=== PATIENT | female | born 1945 ===

== ENCOUNTER 2018-01-28 06:07 | Day surgery (SDC) | payer MEDICARE, MEDICAID ==
--- NOTE | 2018-01-26 18:15 | Pre-op HX & Phy Repo 2 SIG ---
SURGEON: Ko Cool m.d. DATE OF SURGERY: January 28, 2018, laparoscopic cholecystectomy. HISTORY OF PRESENT ILLNESS: This is a 73-year-old female with several months of postprandial abdominal pain who had an abdominal ultrasound revealing gallstones who is now admitted for elective laparoscopic cholecystectomy. The patient does not have any history of acute cholecystitis or hepatobiliary disease. PAST MEDICAL HISTORY: Nephrolithiasis, hypertensive heart disease, chronic venous insufficiency, type 2 diabetes mellitus, hyperlipidemia, Vitamin D deficiency, osteoarthritis predominantly affecting the knees, sinus arrhythmia, degenerative disk disease, B12 deficiency with pernicious anemia. MEDICATIONS: Prior to admission, amlodipine 5 daily, metoprolol succinate 50 daily, Hyzaar 100/12.5 daily, vitamin D 1000 international units daily, calcium carbonate 650 b.i.d., ranitidine 150 daily. Her diet is 1800 calorie ADA. ALLERGIES: None. SOCIAL HISTORY: Negative for smoking, alcohol, or substance abuse. FAMILY HISTORY: Noncontributory. REVIEW OF SYSTEMS: Her most recent echocardiogram this year revealed normal ejection fraction with mild concentric hypertrophy and no significant valve disease. She does have mild aortic atherosclerosis. Her most recent hemoglobin A1c was 6.2 within the last few months. There is no history of kidney disease. There is no history of thyroid impairment. There is no history of seizure or stroke. There is no history of asthma or intolerance to anesthesia. The patient's diabetes is diet controlled. She has not been on anti-lipid therapy recently due to good control with her diet PHYSICAL EXAMINATION: GENERAL: The patient is well developed, well nourished, in no distress. VITAL SIGNS: Weight 158. Height 5 feet 2.5 inches. Blood pressure 140/80, pulse 64, respiratory rate 18, and afebrile. HEENT: Normocephalic and atraumatic. Conjunctivae pink. Oropharynx clear. Mucous membranes moist. NECK: Supple. Jugular venous pressure normal. LUNGS: clear. CARDIAC: Regular rhythm and rate. Normal S1 and S2 with no murmur, rub or gallop. ABDOMEN: Soft, nontender with no guarding or rebound. There is no pulsatile masses. EXTREMITIES: Good pulses. No edema. NEUROLOGIC: Nonfocal. SKIN: Intact with no rashes. LABORATORY AND DIAGNOSTIC DATA: EKG with sinus rhythm at 63 beats per minute, nonspecific ST change. No acute abnormality. LABORATORY DATA: Reviewed. IMPRESSION: This 73-year-old female with symptomatic cholelithiasis is an acceptable candidate for laparoscopic cholecystectomy and standby for open open cholecystectomy with no anticipated increase in perioperative anesthesia risk. Marcin Fleming M.D. DR: Wali JOB#: [id number] CC:
[~2018-01-28] VITALS: Ht 152.4 cm; Wt 71.2 kg
[2018-01-28] VITALS (13 sets, daily range): BP systolic 100–133; BP diastolic 59–76
[~2018-01-28 06:07] MED LIST: AMLODIPINE BESY10 MG PO; LOSARTAN-HCTZ1 EACH ORAL; LOW DOSE ASPIRI81 MG PO; METAMUCIL; METOPROLOL SUCC50 MG PO; RANITIDINE HCL75 MG PO
[2018-01-28] MEDS ORDERED: Lidocaine 1% 10mg/ml/EPI 0.01mg/ml 50ml INJ ONE (07:04)
[2018-01-28] MEDS ORDERED: Bupivacaine 0.5% Inj 30 ml vial INJ ONE (07:04)
[2018-01-28] MEDS ORDERED: Iothalamate Meglumine 60% 30ML INJ ONE (07:05)
[2018-01-28] MEDS ORDERED: Zemuron 50mg/5ml Inj IV ONE (07:06)
[2018-01-28] MEDS ORDERED: Succinylcholine 20mg/ml 10ml vial ONE ×2 (07:06→07:30)
[2018-01-28] MEDS ORDERED: fentaNYL 100 mcg/2 mL IV ONE (07:08)
[2018-01-28] MEDS ORDERED: Midazolam 2mg/2ml Inj ONE (07:08)
[2018-01-28] MEDS ORDERED: Propofol 200mg/20ml IV ONE (07:09)
[2018-01-28] MEDS ORDERED: Lidocaine 1% MPF 10mg/ml 5ml ONE (07:09)
[2018-01-28] MEDS ORDERED: EPINEPHrine 1mg/1ml Amp ONE (07:25)
--- NOTE | 2018-01-28 07:29 | Anethesia Preoperative Eval ---
Anesthesia Pre-op PMH/ROS General Date of Evaluation: Jan 28, 2018 Time of Evaluation: 07:24 Anesthesiologist: Zabrina Iverson CRNA ASA Score: ASA 2 Mallampati Score Class I : Soft palate, uvula, fauces, pillars visible Class II: Soft palate, uvula, fauces visible Class III: Soft palate, base of uvula visible Class IV: Only hard plate visible Mallampati Classification: Class II Surgeon: Travon Diagnosis: Cholelisthiasis, abdominal pain Surgical Procedure: Laparasccopic cholecystectomy with cholangiogram Anesthesia History: none Family History: no anesthesia problems Allergies: Coded Allergies: No Known Allergies (Unverified , 05/10/12) Medications: see eMAR Past Medical History Cardiovascular: Reports: HTN, arrhythmia - sinus arrhythmia, other - hyperlipidemia; Denies: CAD, VA, valve dz Pulmonary: Denies: asthma, COPD, [place], other Gastrointestinal/Genitourinary: Reports: other - Chronic abdominal pain, u/s (+ ) gallstones; hx of nephrolisthesis; Denies: GERD, CRI, ESRD Neurologic/Psychiatric: Denies: dementia, CVA, depression/anxiety, TIA, other Endocrine: Reports: DM - Type II, diet controlled; Denies: hypothyroidism, steroids, other HEENT: Denies: cataract (L), cataract (R), glaucoma, [place] (L), [place] (R), other Hematology/Immune: Reports: anemia - B-12 deficiency, other - venous insufficiency Musculoskeletal/Integumentary: Reports: OA, DDD; Denies: RA, DJD, edema, other PMH Narrative: as above PSxH Narrative: C/S; variscose vein stripping Anesthesia Pre-op Phys. Exam Physician Exam Last Vital Signs Date Time Temp Pulse Resp B/P (MAP) Pulse Ox O2 Delivery O2 Flow Rate FiO2 01/28/18 06:36 98.6 82 20 133/76 (95) 95 98.6 01/28/18 06:35 Room Air Constitutional: NAD Neurologic: CN 2-12 intact Cardiovascular: RRR Respiratory: CTA Gastrointestinal: S/NT/ND Airway Exam Mallampati Score: Class II MO: full Neck: no issues TMD: > 3 FB ROM: full Teeth: missing Dentures: upper, lower Anesthesia Pre-op A/P Labs see chart; K= 3.0 Studies Pre-op Studies: EKG - SR,, echo - 2018: Normal EF, mild concentric hypertrophy , no valve disease Risk Assessment & Plan Assessment: ASA 2, ok to proceed Plan: GETA Pre-Antibiotics Drug: Cefazolin 2 gm Given Within 1 Hr of Incision: Yes Time Given: 07:53 Zabrina Iverson CRNA Jan 28, 2018 07:29
[2018-01-28] MEDS ORDERED: Neostigmine 1mg/ml 10ml Inj ONE (07:30)
[2018-01-28] MEDS ORDERED: Sterile Water Irrig 1000ml IRRIG ONE (07:30)
[2018-01-28] MEDS ORDERED: ceFAZolin sod 2 GM in D5W 110 ML IV SCH (07:30)
[2018-01-28] MEDS ORDERED: Metoclopramide 10mg/2ml Inj ONE (07:30)
[2018-01-28] MEDS ORDERED: Glycopyrrolate 0.2mg/ml 1ml Vial ONE (07:30)
[2018-01-28] MEDS ORDERED: LR 1000ml ONE (07:30)
[2018-01-28] MEDS ORDERED: NS Irrig 1000ml ONE (07:30)
[2018-01-28] MEDS ORDERED: ePHEDrine 50mg/ml Inj ONE (07:30)
--- NOTE | 2018-01-28 07:41 | Pre-Procedure Note/Attestation ---
Pre-Procedure Note/Attestation Complete Prior to Procedure Planned Procedure: not applicable Procedure Narrative: lap zaire Indications for Procedure Pre-Operative Diagnosis: cholelithiasis Attestation I attest that I discussed the nature of the procedure; its benefits; risks and complications; and alternatives (and the risks and benefits of such alternatives ), prior to the procedure, with the patient (or the patient's legal solar manufacturer's representative). I attest that, if there was a reasonable possibility of needing a blood transfusion, the patient (or the patient's legal solar manufacturer's representative) was given the [facility] standardized written summary, pursuant to the Josh Kristin Blood Safety Act ([place] Health and Safety Code # 1645, as amended). I attest that I re-evaluated the patient just prior to the surgery and that there has been no change in the patient's H&P, except as documented below: Ko Cool Jan 28, 2018 07:41
--- NOTE | 2018-01-28 08:51 | Brief Operative Note ---
Immediate Post Operative Note Operative Note Pre-op Diagnosis: symptomatic cholelithiasis Procedure: laparoscopic cholecystectomy Post-op Diagnosis: same as pre-op Surgeon: jan Anesthesiologist: Zabrina MAYFIELD Anesthesia: general, local Specimen: yes Complications: none Condition: stable Fluids: see records Estimated Blood Loss: minimal Drains: none Implant(s) used?: No Ko Cool Jan 28, 2018 08:51
[2018-01-28] MEDS ORDERED: Norco 5mg/325mg tab ORAL PRN (09:00)
--- NOTE | 2018-01-28 09:04 | Immediate Post-Op Evaluation ---
Immediate Post-Op Evalulation Immediate Post-Op Evalulation Procedure: Laparoscopic cholecystectomy Date of Evaluation: Jan 28, 2018 Time of Evaluation: 08:50 IV Fluids: LR + 1 mEQ KCl/100 ml = 600 ml Estimated Blood Loss: minimal Blood Pressure Systolic: 116 Blood Pressure Diastolic: 68 Pulse Rate: 98 Respiratory Rate: 24 O2 Sat by Pulse Oximetry: 98 Temperature (Fahrenheit): 98.5 Pain Score (1-10): 0 Nausea: No Vomiting: No Complications none Patient Status: awake, reacts, patent, extubated Hydration Status: adequate Drug: Cefazolin 2 gm Given Within 1 Hr of Incision: Yes Time Given: 07:53 Zabrina Iverson CRNA Jan 28, 2018 09:04
[2018-01-28] MEDS ORDERED: Labetalol 5mg/ml 20ml vial IV PRN (09:15)
[2018-01-28] MEDS ORDERED: Hydromorphone 0.5mg/0.5ml inj IVP PRN (09:15)
[2018-01-28] MEDS ORDERED: DiphenhydrAMINE 50mg/ml Inj IVP PRN (09:15)
--- NOTE | 2018-01-28 09:46 | 48 Hour Post Anesthesia Eval ---
Post Anesthesia Evaluation Procedure: Laparoscopic cholecystectomy Date of Evaluation: Jan 28, 2018 Time of Evaluation: 09:43 Blood Pressure Systolic: 103 0: 60 Pulse Rate: 84 Respiratory Rate: 23 Temperature (Fahrenheit): 98.5 O2 Sat by Pulse Oximetry: 98 Airway: patent Nausea: No Vomiting: No Pain Intensity: 0 Hydration Status: adequate Cardiopulmonary Status: stable Mental Status/LOC: patient returned to baseline Follow-up Care/Observations: none Post-Anesthesia Complications: none; patient awake alert, comfortable; plan to discharge home today Follow-up care needed: ready to discharge Zabrina Iverson CRNA Jan 28, 2018 09:46
--- NOTE | 2018-01-28 17:15 | Operative Note - Dictated ---
DATE OF OPERATION: 01/28/2018 PREOPERATIVE DIAGNOSIS: Symptomatic cholelithiasis. POSTOPERATIVE DIAGNOSIS: Symptomatic cholelithiasis. OPERATION PERFORMED: Laparoscopic cholecystectomy. ATTENDING SURGEON: Ko Cool M.D. STEM ROLLER: None. ANESTHESIOLOGISTS: Zabrina Iverson CRNA. ANESTHESIA: General CADDY PACKER. ESTIMATED BLOOD LOSS: Minimal. IV FLUIDS: Please see anesthesia records. COMPLICATIONS: None. DRAINS: None. WOUND CLASSIFICATION: Class III. COUNTS: Sponge and needle count correct x2. SPECIMENS: Gallbladder contained stones sent to pathology for review. INDICATIONS FOR PROCEDURE: This is a 73-year-old female who was seen in the office setting for evaluation of intermittent right upper quadrant epigastric pain after oral intake. The patient states that for many years now when she has fatty foods or spicy foods, she notes worsening pain, which at times takes hours to resolve. She had an ultrasound, which revealed a large gallstone and given the above surgery was indicated and recommended. Risks, benefits, and alternatives were discussed the patient in detail, who expressed understanding and consented for surgery. Preoperative medical clearance was performed by the Dr. Marcin Fleming, who is the patient's primary physician. OPERATIVE NOTE: The patient was taken to the operating room and placed on the operating table in supine position with bilateral arms out. All bony prominences were well padded. SCDs were placed. No Denny catheter was inserted given the patient had voided prior to entering the operating room. A 2 g Ancef IV was given 1 hour prior to cut time. General anesthesia was induced and the patient was intubated. The abdomen was then clipped, prepped, and draped in standard surgical fashion. An infraumbilical incision was made using a fresh #11 scalpel and taken to the fascia, which was elevated and incised. Entry into the abdomen was confirmed using open Jessica technique without complication. A 12 mm Jessica trocar was inserted and the abdomen was insufflated to 12 to 15 mmHg. Laparoscope was then inserted and the abdomen is inspected. Following this, secondary trocars placed beginning with a 12 mm subxiphoid right epigastric port followed by two 5 mm right subcostal ports. Secondary trocar placements were done under direct visualization without complication. At this time, the patient was placed in the reverse Trendelenburg position with the left side down. The liver was identified as well as the gallbladder. The dome of the gallbladder was grasped with the most lateral port site and retracted over the liver. The infundibulum was then easily visualized and grasped using a midclavicular port and retracted towards the appendix. Thin filmy adhesions to the infundibulum were taken down and the peritoneal lining of the infundibulum was taken down until the cystic duct and artery were easily visualized and circumferentially dissected out. The critical view was identified and the cystic artery and duct were the only two structures entering into the gallbladder. The cystic artery was doubly clipped and divided. The only remaining structure entering into the gallbladder was noted to be at the infundibulum was to be the cystic duct. The cystic duct was then doubly clipped and divided. The remaining adhesions of the gallbladder at the gallbladder to the liver and gallbladder fossa were taken down using electrocautery. The gallbladder was safely removed without complication. Gallbladder was then placed in endoscopic retrieval bag and removed from the abdomen using the umbilical port site. The liver bed was inspected and electrocautery was used for hemostasis. The clips on the cystic duct artery were visualized to ensure no leakage of bile or bleeding. A Surgicel was placed in the gallbladder fossa. At this time, we began the conclusion of our procedure. Second trocars were removed under direct visualization. Following this, the umbilical trocar site was removed and the abdomen was desufflated. The umbilical trocar site fascia was closed using a [id number] #0 Vicryl suture. The remaining skin incisions were then cleansed and closed using 4-0 Monocryl subcuticular interrupted sutures. The patient tolerated the procedure well. Local anesthetic was used throughout the procedure and trocar sites and skin incisions. The patient was extubated and taken to postanesthetic care unit in stable condition. Ko Cool M.D. DR: BHAVESH JOB#: [id number] CC: JANNA
[2018-01-28] MEDS ORDERED: Tylenol #3 tab (300mg/30mg) ORAL PRN (18:01)
[2018-01-28] MEDS ORDERED: D5 1/2NS 1,000 ML IV SCH (18:01)
[2018-01-28] MEDS ORDERED: HYDROmorphone 1mg/ml Carpuject SUBQ PRN (18:01)
== END 2018-01-28 12:10 | disposition home or self-care (01) ==
LOC: SUR 06:07
DX: K80.10 Calculus of gallbladder with chronic cholecystitis without obstruction (principal); E11.9 Type 2 diabetes mellitus without complications; I10 Essential (primary) hypertension; E78.5 Hyperlipidemia, unspecified; E55.9 Vitamin D deficiency, unspecified; D51.0 Vitamin B12 deficiency anemia due to intrinsic factor deficiency; M17.10 Unilateral primary osteoarthritis, unspecified knee; I49.9 Cardiac arrhythmia, unspecified; I11.9 Hypertensive heart disease without heart failure; I87.2 Venous insufficiency (chronic) (peripheral); Z87.442 Personal history of urinary calculi
CPT/HCPCS: 47562; J0330; J0690; J1170; J2250; J2405; J2704; J2710; J2765; J3010; J3480; 94003; 94150